=== PATIENT | female | born 1990 | race Caucasian/White ===

== ENCOUNTER 2017-03-14 17:51 | Inpatient (IN) | payer BC ==
[2017-03-14] VITALS (13 sets, daily range): BP systolic 115–151; BP diastolic 56–91; PULSE 79–97; RESP 18; TEMP 98.1
[~2017-03-14] VITALS: Ht 165.1 cm; Wt 98.0 kg
[2017-03-14] MEDS ORDERED: LACTATED RINGER'S 1000 ML INJ 1,000 ML IV PRN (18:25)
--- NOTE | 2017-03-14 18:25 | HHI.HP ---
HPI Chief Complaint Postterm induction Date Seen: Mar 14, 2017 Time Seen: 18:20 Travel History International Travel<30 Days: No Contact w/Intl Traveler<30Days: No Known Affected Area: No History of Present Illness HPI Patient is 27-year-old white female at 42 weeks tomorrow patient of Sandra Wang use referred in for induction. heart rate tracing is reactive as she's having occasional contractions now, no vaginal bleeding, baby active Weeks Gestation: 42 Para: 0 : 1 Last Menstrual Period: Mar 14, 2017 History Past Medical History Narrative Medical Childhood asthma takes no medicines now Social History Alcohol Use: No Tobacco Use: No Substance Abuse: No Review of Systems General / Constitutional: No: Fever, Weight Gain, Chills, Other Eyes: No: Diploplia, Blurred Vision, Visual changes, Pain, Photophobia HENT: No: Headaches, Vertigo, Lightheadedness Cardiovascular: No: Irregular Rhythm, Chest Pain or Discomfort, Palpitations, Tachycardia, Syncope, Varicosities, Edema, Cyanosis Respiratory: No: Cough, Short of Breath, Other Gastrointestinal: No: Nausea, Vomiting, Diarrhea Genitourinary: No: Decreased Urinary Output, Oliguria Musculoskeletal: No: Limited ROM, Weakness, Cramping, Edema, Pain Skin: No Rash, No Itching, No Dryness, No Lumps, No Change in Pigmentation, No Change in Nails, No Alopecia, No Lesions Neurologic: No: Weakness, Dizziness, Syncope, Focal Abnormalities, Coordination Problem, Headache, Slurred Speech, Seizures Psychiatric: No: Depression, Suicidal Ideations, Homicidal Ideation Endocrine: No: Heat Intolerance, Cold Intolerance, Polydipsia, Polyuria, Other Physical Exam Narrative GENERAL: Well-nourished, well-developed patient. SKIN: Warm and dry. HEAD: Normocephalic and atraumatic. EYES: No scleral icterus. No injection or drainage. ENT: No nasal drainage noted. Mucous membranes pink. Airway patent. NECK: Supple, trachea midline. No JVD. CARDIOVASCULAR: Regular rate and rhythm without murmurs, gallops, or rubs. RESPIRATORY: Breath sounds equal bilaterally. No accessory muscle use. BREASTS: Bilateral exam showed no masses , no retractions, no nipple discharge. ABDOMEN/GI: Abdomen soft, non-tender, bowel sounds present, no rebound, no guarding Gravid to [-40] weeks size Fundal Height: [-40] GENITOURINARY: External Genitalia: intact and normal in appearance BUS glands: [-] Cervix: [-Mid position] Dilatation: [-3] Effacement: [-] 60 Station: [-1] Presentation: [-vtx] Membranes: [intact ] Uterine Contractions: [Irregular-] FHT's: Category: [1-] Baseline: [-133] Reactive: [-yes] Variability: [mod-] Decels: [Rare variable decel-] EXTREMITIES: No cyanosis or edema. BACK: Nontender without obvious deformity. No CVA tenderness. NEUROLOGICAL: Awake and alert. Motor and sensory grossly within normal limits. Five out of 5 muscle strength in all muscle groups. Normal speech. Caprini VTE Risk Assessment Caprini VTE Risk Assessment: No/Low Risk (score <= 1) Caprini Risk Assessment Model Point Value = 1 Point Value = 2 Point Value = 3 Point Value = 5 Age 41-60 Minor surgery BMI > 25 kg/m2 Swollen legs Varicose veins or History of unexplained or recurrent spontaneous Oral contraceptives or hormone replacement Sepsis (< 1 month) Serious lung disease, including pneumonia (< 1 month) Abnormal pulmonary function Acute myocardial infarction Congestive heart failure (< 1 month) History of inflammatory bowel disease Medical patient at bed rest Age 61-74 Arthroscopic surgery Major open surgery (> 45 min) Laparoscopic surgery (> 45 min) Malignancy Confined to bed (> 72 hours) Immobilizing plaster cast Central venous access Age >= 75 History of VTE Family history of VTE Factor V Leiden Prothrombin [id number] Lupus anticoagulant Anticardiolipin antibodies Elevated serum homocysteine Heparin-induced thrombocytopenia Other congenital or acquired thrombophilia Stroke (< 1 month) Elective arthroplasty Hip, pelvis, or leg fracture Acute spinal cord injury (< 1 month) Prophylaxis Regimen Total Risk Factor Score Risk Level Prophylaxis Regimen 0-1 Low Early ambulation 2 Moderate Order ONE of the following: *Sequential Compression Device (SCD) *Heparin 5000 units SQ BID 3-4 Higher Order ONE of the following medications: *Heparin 5000 units SQ TID *Enoxaparin/Lovenox 40 mg SQ daily (WT < 150 kg, CrCl > 30 mL/min) *Enoxaparin/Lovenox 30 mg SQ daily (WT < 150 kg, CrCl > 10-29 mL/min) *Enoxaparin/Lovenox 30 mg SQ BID (WT < 150 kg, CrCl > 30 mL/min) AND/OR *Sequential Compression Device (SCD) 5 or more Highest Order ONE of the following medications: *Heparin 5000 units SQ TID (Preferred with Epidurals) *Enoxaparin/Lovenox 40 mg SQ daily (WT < 150 kg, CrCl > 30 mL/min) *Enoxaparin/Lovenox 30 mg SQ daily (WT < 150 kg, CrCl > 10-29 mL/min) *Enoxaparin/Lovenox 30 mg SQ BID (WT < 150 kg, CrCl > 30 mL/min) AND *Sequential Compression Device (SCD) Data Data Group B Strep: Negative Assessment/Plan Assessment and Plan Patient 27-year-old white female at 42 weeks tomorrow who presents for induction for postterm , her cervix is 3/60 and /-1 was quite favorable in and has ripened itself. heart rate tracing is reactive and she is nate on her own Impression-postterm induction with favorable cervix Plan-plan to keep the patient nate through the night pulposus necessary to do that we'll continue that when necessary augmentation and in the morning AROM with the Pitocin Kvng Rayo II, MD Mar 14, 2017 18:25
[2017-03-14] MEDS ORDERED: MINERAL OIL 10 ML VIAL TOPICAL PRN (18:30)
[2017-03-14] MEDS ORDERED: LIDOCAINE HCL 1% 50 ML VIAL INFIL PRN (18:30)
[2017-03-14] MEDS ORDERED: OXYTOCIN 30 UNITS-500ML PREMIX 500 ML IV SCH (18:30)
[2017-03-14] MEDS ORDERED: ONDANSETRON HCL 4 MG/2 ML VIAL IV PUSH PRN (18:30)
[2017-03-14] MEDS ORDERED: LIDOCAINE HCL 1% 50 ML VIAL I-DERMAL PRN (18:30)
[2017-03-14] MEDS ORDERED: OXYTOCIN 30 UNITS-500ML PREMIX 500 ML IV ONE (18:30)
[2017-03-14] MEDS ORDERED: SODIUM CHLORID 0.9% 500 ML INJ 500 ML IV PRN (18:30)
[2017-03-14] MEDS ORDERED: SODIUM CHLOR 0.9% 1000 ML INJ 1,000 ML IV PRN (18:45)
[2017-03-14 18:46] LABS: BACTERIA, URINE RARE /hpf; BLOOD, URINE MOD (NEG); COMMENT (UR) CULT NOT INDICATED; CULTURE IF INDICATED CULT NOT INDICATED; GLUCOSE,URINE NEG (NEG); KETONE, URINE 10 mg/dL (NEG); NITRITE,URINE NEG (NEG); SQUAMOUS EPITHELIAL CELL URINE 4 /hpf (0-5); URINE COLOR YELLOW (YELLW/STRAW)
[2017-03-14 18:48] LABS: AUTOMATED NEUTROPHIL # 11.5 TH/MM3 (1.8-7.7); BASOPHIL % 0.3 % (0.0-2.0); EOSINOPHIL % 0.1 % (0.0-4.0); HEMATOCRIT 34.6 % (35.0-46.0); HEMO FLAGS DIFF FINAL; LYMPH % 14.4 % (9.0-44.0); LYMPHOCYTE # 2.1 TH/MM3 (1.0-4.8); MEAN CELL VOLUME 84.9 FL (80.0-100.0); MEAN CORPUSCULAR HEMOGLOBIN 28.8 PG (27.0-34.0); MEAN CORPUSCULAR HGB CONC 33.9 % (32.0-36.0); MONO % 6.2 % (0.0-8.0); PLATELET COUNT 219 TH/MM3 (150-450); RED BLOOD COUNT 4.08 MIL/MM3 (4.00-5.30); RED CELL DISTRIBUTION WIDTH 14.3 % (11.6-17.2); WHITE BLOOD COUNT 14.6 TH/MM3 (4.0-11.0)
[2017-03-14] MEDS: LACTATED RINGER'S 1000 ML INJ 1,000 ML IV SCH (19:03)
[2017-03-14] MEDS ORDERED: ePHEDrine/NS 25 MG/5 ML SYR ONE (21:18)
[2017-03-14] MEDS ORDERED: fentaNYL 2MCG-BUPIV 0.125% INJ 100 ML ONE (21:18)
[2017-03-14] MEDS: fentaNYL 2MCG-BUPIV 0.125% 100 ML EPIDURAL SCH (21:37)
[2017-03-15] VITALS (56 sets, daily range): BP systolic 103–136; BP diastolic 57–87; PULSE 64–124; RESP 18; TEMP 97.6–99.9
[2017-03-15] MEDS ORDERED: DO NOT ADMINISTER ANTICOAGULANTS PRN
[2017-03-15] MEDS ORDERED: NO SYSTEM NARCOTICS PRN
[2017-03-15] MEDS: LACTATED RINGER'S 1000 ML INJ 1,000 ML IV SCH ×2 (02:25→14:11)
[2017-03-15] MEDS: fentaNYL 2MCG-BUPIV 0.125% 100 ML EPIDURAL SCH (03:15)
--- NOTE | 2017-03-15 09:35 | PD.LABORPN ---
Subjective Subjective Patient lying in bed comfortably. Denies any complaints/concerns. Epidural in place. Objective Vital Signs Vital Signs Date Time Temp Pulse Resp B/P (MAP) Pulse Ox O2 Delivery O2 Flow Rate FiO2 03/15/17 09:10 97.6 18 03/15/17 09:08 98 116/71 (86) 03/15/17 08:15 18 03/15/17 08:00 81 124/70 (88) 03/15/17 07:49 69 118/67 (84) 03/15/17 07:30 69 117/57 (77) 03/15/17 07:06 83 116/62 (80) 03/15/17 07:05 98.7 18 03/15/17 06:31 18 03/15/17 06:30 83 128/72 (90) 03/15/17 06:00 80 130/73 (92) 03/15/17 05:30 88 132/82 (99) 03/15/17 05:01 18 03/15/17 05:00 96 114/72 (86) 03/15/17 04:30 89 120/75 (90) 03/15/17 04:00 80 18 109/67 (81) 03/15/17 03:30 88 113/74 (87) 03/15/17 03:02 112 103/62 (76) 03/15/17 02:49 18 03/15/17 02:49 98.3 03/15/17 02:30 78 112/70 (84) 03/15/17 02:00 68 116/57 (76) 03/15/17 01:42 18 03/15/17 01:30 64 110/63 (79) Objective Pelvic Exam: Dilatation: 5 Effacement: 100 Station: 0 Presentation: Vertex Membranes: AROM at 0824 Uterine Contractions: q2-3 minutes FHT's: Category: 1 Baseline: 140 Reactive: yes Variability: moderate Decels: none Weeks Gestation: 42 Gest Age Assessed Date: Mar 15, 2017 Gest Age Assessed Time: 09:32 Pt started active labor?: Yes Active labor start date: Mar 15, 2017 Active labor start time: 03:00 Medical induction of labor?: Yes Medical induction start date: Mar 14, 2017 Medical induction start time: 18:00 Artificial rupture of membrane: Yes Artificial ROM date: Mar 15, 2017 Artifical ROM time: 08:24 Assessment/Plan Assessment and Plan 27 y/o G1 at 42/0 weeks in active labor Category 1 FHT AROM this morning -Expectant management -Continue pitocin -Epidural in place -Continuous FHT -Plan for vaginal delivery Corey Silva MD, R2 Mar 15, 2017 09:34
--- NOTE | 2017-03-15 13:51 | PD.LABORPN ---
Subjective Subjective feeling some nausea and vaginal pressure Objective Vital Signs Vital Signs Date Time Temp Pulse Resp B/P (MAP) Pulse Ox O2 Delivery O2 Flow Rate FiO2 03/15/17 13:29 101 136/87 (103) 03/15/17 13:00 97.8 03/15/17 12:56 18 Objective Pelvic Exam: 9-10/100/0 FHT's: Category: I Baseline: 120 Reactive: + Variability:mod Decels: [-] Weeks Gestation: 42 Gest Age Assessed Date: Mar 15, 2017 Gest Age Assessed Time: 09:32 Pt started active labor?: Yes Active labor start date: Mar 15, 2017 Active labor start time: 03:00 Medical induction of labor?: Yes Medical induction start date: Mar 14, 2017 Medical induction start time: 18:00 Artificial rupture of membrane: Yes Artificial ROM date: Mar 15, 2017 Artifical ROM time: 08:24 Assessment/Plan Assessment and Plan 42 weeks Pitocin augmentation today 9-10cm FHT reassuring Expectant management Chelsie Jeffers MD Mar 15, 2017 13:51
[2017-03-15] MEDS ORDERED: MISOPROSTOL 200 MCG TAB ONE (15:54)
[2017-03-15] MEDS ORDERED: MEASLES, MUMPS, RUBELLA VACCINE 0.5 ML VIAL SQ ONE (16:00)
[2017-03-15] MEDS ORDERED: DIPHTH/TETANUS/ACEL PERTUSSIS (BOOSTER) 0.5 ML VIAL/PFS IM ONE (16:00)
--- NOTE | 2017-03-15 16:37 | PD.OB.DELI ---
Weeks gestation: 42 Gest age assessed date: Mar 15, 2017 Gest age assessed time: 09:32 Pt started active labor?: Yes Active labor start date: Mar 15, 2017 Active labor start time: 03:00 Medical induction of labor?: Yes Medical induction start date: Mar 14, 2017 Medical induction start time: 18:00 Artificial rupture of membrane: Yes Artificial ROM date: Mar 15, 2017 Artifical ROM time: 08:24 Anesthesia: Epidural Episiotomy: None Vaginal Delivery: Normal Presentation: Occiput anterior Nuchal Cord: None Delayed cord clamping (45 sec): Yes : Female Delivery date: Mar 15, 2017 Delivery time: 15:49 One Minute : 9 Five Minute : 9 Weight: 3875g Placenta: Spontaneous delivery, Intact, Other (grossly normal) Laceration: 2 deg Repair: Vicryl running Estimated blood loss: 300 Additional Information 27 yo @ 42 weeks. IOL with Pitocin. Epidural for anesthesia. AROM, clear fluid. with terminal bradycardia. Second degree laceration, bilateral side flowers to perineum. Repaired with 2-0 Vicryl. Placenta spontaneous, intact, grossly normal. EBL 300ml. Cytotec 800mcg given SD for bleeding, resolved. Chelsie Jeffers MD Mar 15, 2017 4:37 pm
[2017-03-15] MEDS ORDERED: ONDANSETRON ODT 4 MG TAB PO PRN (16:45)
[2017-03-15] MEDS ORDERED: ALUMINUM/MAGNESIUM/SIMETH 30 ML CUP PO PRN (16:45)
[2017-03-15] MEDS ORDERED: OXYTOCIN 30 UNITS-500ML PREMIX 500 ML IV SCH (16:45)
[2017-03-15] MEDS ORDERED: DOCUSATE SODIUM 50 MG/SENNA 8.6 MG TAB PO PRN (16:45)
[2017-03-15] MEDS ORDERED: SODIUM CHLORIDE 0.9% FLUSH 10 ML FLUSH IV FLUSH PRN (16:45)
[2017-03-15] MEDS ORDERED: OXYTOCIN 30 UNITS-500ML PREMIX 500 ML ONE (17:18)
[2017-03-15] MEDS: IBUPROFEN 600 MG TAB PO PRN (17:26)
[2017-03-15] MEDS: ACETAMINOPHEN 325 MG TAB PO PRN (20:23)
[2017-03-15] MEDS ORDERED: SODIUM CHLORIDE 0.9% FLUSH 10 ML FLUSH IV FLUSH SCH (21:00)
[2017-03-15] MEDS ORDERED: ePHEDrine/NS 25 MG/5 ML SYR IV PUSH PRN (23:45)
[2017-03-16] MEDS: WITCH HAZEL 50%/GLYCERIN 12.5% 40 PAD JAR TOPICAL PRN (02:46)
[2017-03-16] MEDS: BENZOCAINE 20% TOPICAL SPRAY 60 ML CAN TOPICAL PRN (02:46)
[2017-03-16] MEDS: ACETAMINOPHEN 325 MG TAB PO PRN ×3 (07:45→18:37)
[2017-03-16] MEDS: IBUPROFEN 600 MG TAB PO PRN ×3 (07:45→18:37)
[2017-03-16 07:46] VITALS: BP 122/69; PULSE 71; RESP 18; TEMP 98.1
--- NOTE | 2017-03-16 09:01 | HHI.OB ---
Subjective Post Day: 1 Remarks day #1. AFVSS overnight. Pain controlled with medications. Decreased lochia. Denies dysuria. No breast tenderness. She is feeding the baby via breast. Appetite good. No nausea or vomiting. Endorses flatus. No bowel movement. Ambulating well. Denies calf pain, shortness of breath, or cough. Otherwise, she is doing well this morning and has no other complaints. (Corey Silva MD, R2) Objective Vitals/I&O Vital Signs Date Time Temp Pulse Resp B/P (MAP) Pulse Ox O2 Delivery O2 Flow Rate FiO2 03/15/17 22:09 99.3 73 18 110/61 (77) 03/15/17 18:35 99.9 70 18 119/85 (96) 03/15/17 18:05 18 03/15/17 18:01 82 121/63 (82) 03/15/17 17:47 18 03/15/17 17:46 99.6 75 131/78 (95) 03/15/17 17:35 79 133/76 (95) 03/15/17 17:25 18 03/15/17 17:04 86 134/77 (96) 03/15/17 17:03 18 03/15/17 16:50 99.0 03/15/17 16:46 84 128/74 (92) 03/15/17 16:45 18 03/15/17 16:23 80 18 122/63 (82) 03/15/17 15:45 118 03/15/17 15:40 119 03/15/17 15:35 124 03/15/17 13:50 95 122/73 (89) 03/15/17 13:49 18 03/15/17 13:29 101 136/87 (103) 03/15/17 13:00 97.8 03/15/17 12:57 88 131/79 (96) 03/15/17 12:56 18 03/15/17 12:26 95 132/86 (101) 03/15/17 11:50 18 03/15/17 11:50 85 128/83 (98) 03/15/17 11:22 79 125/72 (89) 03/15/17 10:49 84 127/77 (94) 03/15/17 10:49 98.9 18 03/15/17 10:21 74 122/63 (82) 03/15/17 09:53 76 18 113/61 (78) 03/15/17 09:10 97.6 18 03/15/17 09:08 98 116/71 (86) Objective Remarks GENERAL: Well-nourished, well-developed patient. CARDIOVASCULAR: Regular rate and rhythm without murmurs, gallops, or rubs. RESPIRATORY: Breath sounds equal bilaterally. No accessory muscle use. ABDOMEN/GI: Abdomen soft, non-tender. Fundus: Firm, non-tender at umbilicus. GENITOURINARY: Light to moderate bleeding. EXTREMITIES: No cyanosis or edema, non-tender, without signs of DVT. Medications and IVs Current Medications Medications (Trade) Dose Ordered Sig/Shailesh Route Start Time Stop Time Status Last Admin (NS Flush) 2 ml BID IV FLUSH 03/15/17 21:00 (NS Flush) 2 ml UNSCH PRN IV FLUSH 03/15/17 16:45 (Tylenol) 650 mg Q4H PRN PO 03/15/17 16:45 03/16/17 07:45 (Motrin) 600 mg Q6H PRN PO 03/15/17 16:45 03/16/17 07:45 (Americaine 20% Top Spr) 1 spray Q4H PRN TOPICAL 03/15/17 16:45 03/16/17 02:46 (Tucks Pads) 1 applic QID PRN TOPICAL 03/15/17 16:45 03/16/17 02:46 (Charleen-Colace) 2 tab Q12H PRN PO 03/15/17 16:45 03/16/17 02:45 (Mag-Al Plus Susp Liq) 15 ml Q8H PRN PO 03/15/17 16:45 (Zofran Odt) 4 mg Q6H PRN PO 03/15/17 16:45 (Corey Silva MD, R2) Assessment/Plan Assessment and Plan 27y/o who is PPD# 1 s/p . -Continue routine care. -Percocet and Motrin PRN pain. -Encouraged OOB. Advised pelvic rest for 6 wks. -Will need a f/u appt. within 6 wks. -Re: ctrl, she is undecided. -D/c in 1-2 more days. dw OB attending (Corey Silva MD, R2) Attending Attestation PPD #1 doing well d/c home in AM patient seen and examined. d/w Dr. Silva and Dr. Harper (Chelsie Jeffers MD) Corey Silva MD, R2 Mar 16, 2017 09:01 Chelsie Jeffers MD Mar 16, 2017 09:20
[2017-03-16 20:11] VITALS: BP 122/71; PULSE 65; RESP 18; TEMP 98
[2017-03-17] MEDS: ACETAMINOPHEN 325 MG TAB PO PRN ×2 (01:56→07:53)
[2017-03-17] MEDS: IBUPROFEN 600 MG TAB PO PRN ×2 (01:57→07:52)
[2017-03-17 07:45] VITALS: BP 115/64; PULSE 70; RESP 16; TEMP 98.4
[2017-03-17] MEDS: BENZOCAINE 20% TOPICAL SPRAY 60 ML CAN TOPICAL PRN (07:52)
[2017-03-17] MEDS: WITCH HAZEL 50%/GLYCERIN 12.5% 40 PAD JAR TOPICAL PRN (07:52)
[2017-03-17] MEDS ORDERED: IBUP-232 PO (08:49)
[2017-03-17] MEDS ORDERED: SENN1TAB PO (08:49)
--- NOTE | 2017-03-17 08:50 | HHI.DCPOC ---
Discharge Care Plan Diagnosis: (1) Report Symptoms to Your Doctor -Temperature above 100.5 degrees -Redness, of incision or excessive or foul smelling drainage -Unusual pain or calf pain -Increased vaginal bleeding -Painful or difficulty urinating -Feelings of extreme sadness or anxiety after 2 weeks Goals to Promote Your Health * To prevent worsening of your condition and complications * To maintain your health at the optimal level Directions to Meet Your Goals Take your medications as prescribed Follow your dietary instruction Follow activity as directed Ensure plenty of rest for recovery Drink fluids for hydration Keep your appointments as scheduled Take your immunizations and boosters as scheduled If your symptoms worsen call your PCP, if no PCP go to Urgent Care Center or Emergency Room Smoking is Dangerous to Your Health. Avoid second hand smoke Call the 24-hour crisis hotline for domestic abuse at Karen Harper MD R1 Mar 17, 2017 08:50
--- NOTE | 2017-03-17 09:38 | HHI.OB ---
Subjective Post Day: 2 Remarks day #2. AFVSS overnight. Pain minimal. Decreased lochia. Denies dysuria. No breast tenderness. She is feeding the baby via breast. Appetite good. No nausea or vomiting. Endorses flatus. Endorses bowel movement. Ambulating well. Denies calf pain, shortness of breath, or cough. Otherwise, she is doing well this morning and has no other complaints. Objective Vitals/I&O Vital Signs Date Time Temp Pulse Resp B/P (MAP) Pulse Ox O2 Delivery O2 Flow Rate FiO2 03/16/17 20:11 98.0 65 18 122/71 (88) Objective Remarks GENERAL: Well-nourished, well-developed patient. CARDIOVASCULAR: Regular rate and rhythm without murmurs, gallops, or rubs. RESPIRATORY: Breath sounds equal bilaterally. No accessory muscle use. ABDOMEN/GI: Abdomen soft, non-tender. Fundus: Firm, non-tender at umbilicus. GENITOURINARY: Light to moderate bleeding. EXTREMITIES: No cyanosis or edema, non-tender, without signs of DVT. Medications and IVs Current Medications Medications (Trade) Dose Ordered Sig/Shailesh Route Start Time Stop Time Status Last Admin (NS Flush) 2 ml BID IV FLUSH 03/15/17 21:00 (NS Flush) 2 ml UNSCH PRN IV FLUSH 03/15/17 16:45 (Tylenol) 650 mg Q4H PRN PO 03/15/17 16:45 03/17/17 07:53 (Motrin) 600 mg Q6H PRN PO 03/15/17 16:45 03/17/17 07:52 (Americaine 20% Top Spr) 1 spray Q4H PRN TOPICAL 03/15/17 16:45 03/17/17 07:52 (Tucks Pads) 1 applic QID PRN TOPICAL 03/15/17 16:45 03/17/17 07:52 (Charleen-Colace) 2 tab Q12H PRN PO 03/15/17 16:45 03/16/17 02:45 (Mag-Al Plus Susp Liq) 15 ml Q8H PRN PO 03/15/17 16:45 (Zofran Odt) 4 mg Q6H PRN PO 03/15/17 16:45 Assessment/Plan Assessment and Plan 27y/o who is PPD#2 s/p . -Continue routine care. -Percocet and Motrin PRN pain. -Encouraged OOB. Advised pelvic rest for 6 wks. -Will need a f/u appt. within 6 wks. -Re: ctrl, she is undecided. -D/c today dw OB attending Corey Silva MD, R2 Mar 17, 2017 09:37
== END 2017-03-17 12:33 | disposition home or self-care (01) | DRG 775 ==
LOC: H2EB 17:51 → H1EA 03-15 18:29
PROVIDERS: ADMIT Obstetrics & Gynecology Maternal & Fetal Medicine; ATTEND Obstetrics & Gynecology Maternal & Fetal Medicine
PROC: 10E0XZZ Delivery of Products of Conception, External Approach (ICD-10-PCS; principal; 2017-03-14)
PROC: 0KQM0ZZ Repair Perineum Muscle, Open Approach (ICD-10-PCS; 2017-03-14)
PROC: 3E0P3VZ Introduction of Hormone into Female Reproductive, Percutaneous Approach (ICD-10-PCS; 2017-03-14)
PROC: 00HU33Z Insertion of Infusion Device into Spinal Canal, Percutaneous Approach (ICD-10-PCS; 2017-03-14)
PROC: 3E0R3BZ Introduction of Anesthetic Agent into Spinal Canal, Percutaneous Approach (ICD-10-PCS; 2017-03-14)
PROC: 10907ZC Drainage of Amniotic Fluid, Therapeutic from Products of Conception, Via Natural or Artificial Opening (ICD-10-PCS; 2017-03-14)
DX: O48.0 Post-term pregnancy (principal); O70.1 Second degree perineal laceration during delivery; Z37.0 Single live birth; Z3A.42 42 weeks gestation of pregnancy
CPT/HCPCS: 59025; 81001; 85025; 86850; 86900; 86901; J2590; J7120